=== PATIENT | female | born 1975 | race African-American/Black ===

== ENCOUNTER 2019-01-21 15:46 | Emergency (ER) | payer MEDICAID ==
[~2019-01-21] VITALS: Ht 170.2 cm; Wt 59.0 kg
[2019-01-21] MEDS ORDERED: IBUPROFEN 600MG TABLET PO ONE (17:15)
[2019-01-21 17:20] VITALS: BP 132/90
== END 2019-01-21 18:11 | disposition home or self-care (01) ==
LOC: ER 17:41
DX: S39.012A Strain of muscle, fascia and tendon of lower back, initial encounter (principal); S16.1XXA Strain of muscle, fascia and tendon at neck level, initial encounter; F17.200 Nicotine dependence, unspecified, uncomplicated; I10 Essential (primary) hypertension; V49.59XA Passenger injured in collision with other motor vehicles in traffic accident, initial encounter; Y93.89 Activity, other specified; Y92.89 Other specified places as the place of occurrence of the external cause; Y99.8 Other external cause status; Z98.51 Tubal ligation status; Z90.49 Acquired absence of other specified parts of digestive tract
CPT/HCPCS: 99282